=== PATIENT | female | born 1975 | race Caucasian/White ===

== ENCOUNTER → 2016-10-17 | Outpatient (REF) | payer BC ==
[2016-10-17 11:35] LABS: ANION GAP 10 MEQ/L (8-16); BLOOD UREA NITROGEN 15 MG/DL (7-18); CALCIUM LEVEL 8.9 MG/DL (8.5-10.1); CARBON DIOXIDE LEVEL 23 MEQ/L (21-32); CHLORIDE LEVEL 107 MEQ/L (98-107); CHOLESTEROL LEVEL 153 MG/DL (<200); CREATININE FOR GFR 0.86 MG/DL (0.55-1.02); GLOMERULAR FILTRATION RATE > 60.0 (>58); GLUCOSE, FASTING 97 MG/DL (70-105); SODIUM LEVEL 140 MEQ/L (136-145); TRIGLYCERIDES LEVEL 124 MG/DL (<150)
== END ==
LOC: M LABDRAWC 11:02
PROVIDERS: ATTEND Physician Assistant Medical
DX: R73.01 Impaired fasting glucose (principal); E55.9 Vitamin D deficiency, unspecified; E83.51 Hypocalcemia

== ENCOUNTER 2016-11-20 07:52 | Emergency (ER) | payer BC ==
[~2016-11-20] VITALS: Ht 162.6 cm; Wt 78.9 kg
[2016-11-20] MEDS ORDERED: ATOR1TAB21 PO (08:28)
[2016-11-20] MEDS ORDERED: PHEN15CA58 PO (08:28)
[2016-11-20] MEDS ORDERED: ZOLO50TA PO (08:28)
[2016-11-20] MEDS ORDERED: METF500T4 PO (08:28)
[2016-11-20 10:27] LABS: BASO % 0.3 % (0.0-1.0); EOS # 0.2 K/mm3 (0.0-0.50); EOS % 2.4 % (0.0-3.0); LARGE UNSTAINED CELL # 0.1 K/mm3 (0.0-0.4); LARGE UNSTAINED CELL % 1.3 % (0.0-4.0); LYMPH # 2.2 K/mm3 (1.5-4.5); LYMPH % 28.7 % (24.0-44.0); MEAN CORPUSCULAR HEMOGLOBIN 33.2 pg (27.0-33.0); MEAN CORPUSCULAR HGB CONC 34.8 g/dl (32.0-36.5); MEAN CORPUSCULAR VOLUME 95.5 fl (80.0-96.0); MONO # 0.3 K/mm3 (0.0-0.8); MONO % 4.5 % (0.0-5.0); NEUTROPHILS # 4.6 K/mm3 (1.8-7.7); NEUTROPHILS % 62.8 % (36.0-66.0); PLATELET COUNT, AUTOMATED 273 k/mm3 (150-450); RED CELL DISTRIBUTION WIDTH 12.6 % (11.5-14.5); WHITE BLOOD COUNT 7.4 K/mm3 (4.0-10.0)
--- NOTE | 2016-11-20 10:30 | REP ---
Acute abdominal series: Three views. History: Abdominal pain. Comparison study June 09, 2011. Findings: Upright chest radiograph is normal. There is no evidence of infiltrate or free subdiaphragmatic air. Heart is not enlarged. Supine and erect views of the abdomen show air and stool in a nondistended colon. There are a few loops of air-filled but nondilated small bowel in the right mid abdomen. Psoas margins and flank stripes are intact. No mass, organomegaly, or pathologic calcification is seen. There are two adjacent calcific opacities in the left mid pelvis. These are unchanged compared to August 11, 2009 prior radiographs and are therefore not felt to be a distal ureteral. Impression: Nonspecific right central abdominal small bowel loops. Otherwise unremarkable abdominal series. Signed by Vahid Thomason MD 11/20/2016 12:24 P
[2016-11-20 10:46] LABS: ALBUMIN 3.8 GM/DL (3.2-5.2); ALBUMIN/GLOBULIN RATIO 1.19 (1.00-1.93); ALKALINE PHOSPHATASE 86 U/L (45-117); ALT/SGPT 48 U/L (12-78); ANION GAP 7 MEQ/L (8-16); AST/SGOT 31 U/L (15-37); BILIRUBIN,DIRECT < 0.1 MG/DL (0.0-0.2); BILIRUBIN,TOTAL 0.3 MG/DL (0.2-1.0); BLOOD UREA NITROGEN 13 MG/DL (7-18); CALCIUM LEVEL 8.7 MG/DL (8.5-10.1); CARBON DIOXIDE LEVEL 26 MEQ/L (21-32); CHLORIDE LEVEL 109 MEQ/L (98-107); CREATININE FOR GFR 0.85 MG/DL (0.55-1.02); GLOMERULAR FILTRATION RATE > 60.0 (>58); GLUCOSE, FASTING 100 MG/DL (70-105); POTASSIUM SERUM 4.1 MEQ/L (3.5-5.1); SODIUM LEVEL 142 MEQ/L (136-145)
--- NOTE | 2016-11-20 12:19 | REP ---
Pelvic sonography: History: Question right ovarian cyst. Comparison sonography is from July 16, 2013. Findings: Transabdominal scanning is performed. Uterus is surgically absent. The left ovary is removed. Visualized bladder arenas are smooth. Right ovary is normal measuring 3.5 x 2.6 x 3.1 cm in overall dimension. Resistive index is normal by Doppler in the right ovary at 0.53. Impression: Status post hysterectomy and left oophorectomy. Normal right ovary seen. No free fluid. Signed by Vahid Thomason MD 11/20/2016 12:28 P
--- NOTE | 2016-11-20 13:15 | REP ---
CT study of the abdomen pelvis without IV or oral contrast: Renal stone protocol. History: Right lower quadrant pain, question appendicitis. Comparison CT study: December 30, 2013. CT findings: Preliminary digital music journalist radiograph shows an unremarkable bowel gas pattern. The lung bases are clear. There is no evidence of pleural effusion or upper abdominal ascites. The liver and the spleen are normal in size and homogeneous in texture. No adrenal lesion is seen on either side. The gallbladder and the pancreas are unremarkable. There is an intrarenal 3 mm calculus at the lower pole of the right kidney. There is also a 2 mm intrarenal calculus at the upper pole of the left kidney. No hydronephrosis is seen on either side. No hydroureter is seen. No bladder calculus is observed. There are sutures in the left adnexal region in this patient who is status post left oophorectomy. Uterus is surgically absent. A normal right ovary is seen measuring 2.8 cm in greatest diameter. Normal appendix is noted in the right lower abdomen. No abdominal wall defect is observed. No bony destructive lesion is seen. Impression: Bilateral intrarenal nephrolithiasis with a single intrarenal calculus in each kidney. No hydronephrosis seen. Status post hysterectomy and left sided oophorectomy. Normal appendix seen. Signed by Vahid Thomason MD 11/20/2016 07:16 P
[2016-11-20 14:28] VITALS: BP 114/72
== END 2016-11-20 14:38 | disposition home or self-care (01) ==
LOC: M ED 09:06
DX: N20.0 Calculus of kidney (principal); F32.9 Major depressive disorder, single episode, unspecified; I45.10 Unspecified right bundle-branch block; N80.9 Endometriosis, unspecified; F17.200 Nicotine dependence, unspecified, uncomplicated; Z88.2 Allergy status to sulfonamides; Z79.899 Other long term (current) drug therapy

== ENCOUNTER → 2017-03-21 | Outpatient (REF) | payer BC ==
[~2017-03-21] MED LIST: ATOR1TAB21 PO; METF500T4 PO; PHEN15CA PO; ZOLO50TA PO
[2017-03-21 14:09] LABS: ANION GAP 7 MEQ/L (8-16); BLOOD UREA NITROGEN 11 MG/DL (7-18); CALCIUM LEVEL 8.6 MG/DL (8.5-10.1); CARBON DIOXIDE LEVEL 23 MEQ/L (21-32); CHLORIDE LEVEL 108 MEQ/L (98-107); CHOLESTEROL LEVEL 183 MG/DL (<200); CREATININE FOR GFR 0.82 MG/DL (0.55-1.02); GLOMERULAR FILTRATION RATE > 60.0 (>58); GLUCOSE, FASTING 82 MG/DL (70-105); POTASSIUM SERUM 3.8 MEQ/L (3.5-5.1); SODIUM LEVEL 138 MEQ/L (136-145); TRIGLYCERIDES LEVEL 124 MG/DL (<150)
== END ==
LOC: M SFHCPLAZ 12:27
PROVIDERS: ATTEND Physician Assistant Medical
DX: R73.01 Impaired fasting glucose (principal); E83.51 Hypocalcemia; E55.9 Vitamin D deficiency, unspecified

== ENCOUNTER → 2017-03-22 | Outpatient (CLI) | payer BC ==
--- NOTE | 2017-03-22 11:02 | REP ---
CT ABDOMEN AND PELVIS WITHOUT CONTRAST: CT abdomen and pelvis performed without oral or IV contrast. Sagittal and coronal reconstruction images is performed. Comparison made with a prior study of 11/20/2016. The visualized lung bases are clear. The liver, spleen, adrenals and pancreas are grossly unremarkable. Tiny intrarenal calculus is seen in the lower pole of the right kidney and in the upper pole of the left kidney. No ureteral calculi are seen and there is no evidence of hydroureteronephrosis. There is no abdominal aortic aneurysm. There is no adenopathy. There is no free air or free fluid. There is no bowel wall thickening. There is no evidence of appendicitis. The patient has had a prior hysterectomy and left oophorectomy. The urinary bladder is minimally distended and grossly unremarkable. IMPRESSION: Tiny intrarenal calculus bilaterally. No ureteral calculus and no hydroureteronephrosis. No evidence of appendicitis. Signed by Mat Cam MD 03/22/2017 03:56 P
[2017-03-22 11:20] LABS: ALBUMIN 3.6 GM/DL (3.2-5.2); ALBUMIN/GLOBULIN RATIO 1.44 (1.00-1.93); ALKALINE PHOSPHATASE 88 U/L (45-117); ALT/SGPT 48 U/L (12-78); AMYLASE 57 U/L (25-115); ANION GAP 8 MEQ/L (8-16); AST/SGOT 22 U/L (15-37); BILIRUBIN,TOTAL 0.5 MG/DL (0.2-1.0); BLOOD UREA NITROGEN 11 MG/DL (7-18); CALCIUM LEVEL 8.6 MG/DL (8.5-10.1); CARBON DIOXIDE LEVEL 22 MEQ/L (21-32); CHLORIDE LEVEL 111 MEQ/L (98-107); CREATININE FOR GFR 0.82 MG/DL (0.55-1.02); GLOMERULAR FILTRATION RATE > 60.0 (>58); GLUCOSE, FASTING 102 MG/DL (70-105); POTASSIUM SERUM 4.2 MEQ/L (3.5-5.1); SODIUM LEVEL 141 MEQ/L (136-145); TOTAL PROTEIN 6.1 GM/DL (6.4-8.2)
== END ==
LOC: M LAB 09:17
PROVIDERS: ATTEND Physician Assistant Medical
DX: N20.0 Calculus of kidney (principal)

== ENCOUNTER → 2017-07-24 | Outpatient (CLI) | payer BC ==
--- NOTE | 2017-07-24 09:47 | REPMRS ---
Patient History The patient states she has not had a clinical breast exam in over a year. No known family history of cancer. Benign cyst aspiration of the right breast, 2012. Digital Woman Screen Mammo: July 24, 2017 - Exam #: [id number] Bilateral CC and MLO view(s) were taken. Technologist: Etelvina Egan, Technologist Prior study comparison: July 11, 2016, digital woman screen mammo performed at [facility]. May 18, 2015, bilateral digital mammo screening bilat, performed at [facility]. FINDINGS: The breast tissue is heterogeneously dense. This may lower the sensitivity of mammography. There has been no change in the appearance of the mammogram from the prior studies. There is a moderate amount of residual fibroglandular tissue which is fairly symmetric. There is no interval development of dominant mass, areas of architectural distortion, or clustered microcalcification typical of malignancy. ASSESSMENT: BI-RADS/ACR category 1 mammogram. Negative. Recommendation Routine screening mammogram in 1 year (for women over age 40). This mammogram was interpreted with the aid of an FDA-approved computer-aided dectection system. Electronically Signed By: Mat Cam MD 07/24/17 [id number]
== END ==
LOC: M WHC 06:51
PROVIDERS: ATTEND Family Medicine
DX: Z12.31 Encounter for screening mammogram for malignant neoplasm of breast (principal)

== ENCOUNTER → 2018-01-10 | Outpatient (REF) | payer BC ==
[2018-01-10 11:38] LABS: BASO % 0.3 % (0.0-1.0); EOS # 0.2 10^3/uL (0.0-0.50); EOS % 2.8 % (0.0-3.0); HEMATOCRIT 42.7 % (36.0-47.0); HEMOGLOBIN 14.4 g/dl (12.0-15.5); IMMATURE GRANULOCYTE % 0.3 % (0-3.0); LYMPH # 2.1 10^3/uL (1.5-4.5); MEAN CORPUSCULAR HEMOGLOBIN 31.2 pg (27.0-33.0); MEAN CORPUSCULAR HGB CONC 33.7 g/dl (32.0-36.5); MEAN CORPUSCULAR VOLUME 92.4 fl (80.0-96.0); MONO # 0.4 10^3/uL (0.0-0.8); MONO % 6.6 % (0.0-5.0); NEUTROPHILS # 3.6 10^3/uL (1.8-7.7); PLATELET COUNT, AUTOMATED 280 10^3/uL (150-450); RED BLOOD COUNT 4.62 10^6/uL (4.00-5.40); RED CELL DISTRIBUTION WIDTH 12.6 % (11.5-14.5); WHITE BLOOD COUNT 6.4 10^3/uL (4.0-10.0)
[2018-01-10 12:58] LABS: ALBUMIN 3.6 GM/DL (3.2-5.2); ALKALINE PHOSPHATASE 84 U/L (45-117); ALT/SGPT 81 U/L (12-78); ANION GAP 7 MEQ/L (8-16); AST/SGOT 38 U/L (7-37); BILIRUBIN,TOTAL 0.5 MG/DL (0.2-1.0); BLOOD UREA NITROGEN 8 MG/DL (7-18); CALCIUM LEVEL 8.7 MG/DL (8.5-10.1); CARBON DIOXIDE LEVEL 27 MEQ/L (21-32); CHLORIDE LEVEL 109 MEQ/L (98-107); CREATININE FOR GFR 0.88 MG/DL (0.55-1.30); GAMMA GLUTAMYLTRANSPEPTIDASE 98 U/L (5-55); GLOMERULAR FILTRATION RATE > 60.0 (>58); GLUCOSE, FASTING 121 MG/DL (70-100); POTASSIUM SERUM 4.1 MEQ/L (3.5-5.1); SODIUM LEVEL 143 MEQ/L (136-145); TOTAL PROTEIN 6.6 GM/DL (6.4-8.2)
[2018-01-15 08:11] LABS: O+P EXAM Final report (.)
== END ==
LOC: M SFHCPLAZ 09:42 → M SFHCCLAY 09:46
DX: A09 Infectious gastroenteritis and colitis, unspecified (principal)
CPT/HCPCS: 82977

== ENCOUNTER → 2018-01-25 | Outpatient (REF) | payer BC ==
[2018-01-25 12:02] LABS: TOTAL 25(OH) VITAMIN D 24.9 NG/ML (30.0-100.0)
[2018-01-25 12:03] LABS: PTH INTACT 33.7 PG/ML (18.5-88.0)
[2018-01-25 12:31] LABS: ALBUMIN 3.9 GM/DL (3.2-5.2); ALKALINE PHOSPHATASE 88 U/L (45-117); ALT/SGPT 64 U/L (12-78); ANION GAP 10 MEQ/L (8-16); AST/SGOT 30 U/L (7-37); BILIRUBIN,TOTAL 0.4 MG/DL (0.2-1.0); BLOOD UREA NITROGEN 13 MG/DL (7-18); CALCIUM LEVEL 9.2 MG/DL (8.5-10.1); CARBON DIOXIDE LEVEL 21 MEQ/L (21-32); CHLORIDE LEVEL 110 MEQ/L (98-107); CHOLESTEROL LEVEL 187 MG/DL (<200); CHOLESTEROL RISK RATIO 4.348 (<5); CREATININE FOR GFR 0.85 MG/DL (0.55-1.30); FREE T4 0.92 NG/DL (0.76-1.46); GLOMERULAR FILTRATION RATE > 60.0 (>58); GLUCOSE, FASTING 108 MG/DL (70-100); HDL CHOLESTEROL 43 MG/DL (>40); LDL CHOLESTEROL 117.8 MG/DL (<100); NON-HDL-C 144 MG/DL; POTASSIUM SERUM 4.1 MEQ/L (3.5-5.1); SODIUM LEVEL 141 MEQ/L (136-145); TOTAL PROTEIN 6.9 GM/DL (6.4-8.2); TRIGLYCERIDES LEVEL 131 MG/DL (<150)
== END ==
LOC: M SFHCPLAZ 09:10
DX: E55.9 Vitamin D deficiency, unspecified (principal); E66.9 Obesity, unspecified; E78.2 Mixed hyperlipidemia
CPT/HCPCS: 84443

== ENCOUNTER → 2018-02-05 | Outpatient (REF) | payer BC | LOC: M SFHCPLAZ 14:34 | DX: A04.72 Enterocolitis due to Clostridium difficile, not specified as recurrent (principal) ==

== ENCOUNTER → 2018-02-06 | Outpatient (REF) | payer BC | LOC: M SFHCPLAZ 11:14 | DX: A04.72 Enterocolitis due to Clostridium difficile, not specified as recurrent (principal) | CPT/HCPCS: 87507 ==

== ENCOUNTER → 2018-06-14 | Outpatient (REF) | payer BC | LOC: M SFHCCLAY 09:45 | DX: N39.0 Urinary tract infection, site not specified (principal) | CPT/HCPCS: 87086 ==

== ENCOUNTER → 2018-07-30 | Outpatient (CLI) | payer BC | LOC: M WHC 16:14 | DX: Z12.31 Encounter for screening mammogram for malignant neoplasm of breast (principal); Z92.89 Personal history of other medical treatment | CPT/HCPCS: 77067 ==

== ENCOUNTER → 2018-07-31 | Outpatient (REF) | payer BC ==
[2018-07-31 17:03] LABS: ESTIMATED AVERAGE GLUCOSE 126 MG/DL (60-110)
== END ==
LOC: M LABDRAWC 16:03
DX: R73.01 Impaired fasting glucose (principal)
CPT/HCPCS: 83036

== ENCOUNTER → 2018-09-30 | Outpatient (REF) | payer BC ==
[2018-09-30 17:15] LABS: CREATININE, URINE 65.7 MG/DL; MALB URINE SIEMENS < 5.0 MG/L; MAU/CREAT RATIO 7.6 MCG/MG (0.0-30.0)
[2018-09-30 17:32] LABS: ALBUMIN 3.7 GM/DL (3.2-5.2); ALT/SGPT 36 U/L (12-78); BILIRUBIN,TOTAL 0.3 MG/DL (0.2-1.0); BLOOD UREA NITROGEN 8 MG/DL (7-18); CALCIUM LEVEL 8.5 MG/DL (8.5-10.1); CARBON DIOXIDE LEVEL 21 MEQ/L (21-32); CHLORIDE LEVEL 103 MEQ/L (98-107); CREATININE FOR GFR 0.85 MG/DL (0.55-1.30); FREE T4 0.71 NG/DL (0.76-1.46); GLOMERULAR FILTRATION RATE > 60.0 (>58); GLUCOSE, FASTING 159 MG/DL (70-100); POTASSIUM SERUM 4.1 MEQ/L (3.5-5.1); SODIUM LEVEL 136 MEQ/L (136-145); TOTAL PROTEIN 6.9 GM/DL (6.4-8.2)
== END ==
LOC: M LABDRAWC 16:25 → M SFHCCLAY 16:25
PROVIDERS: ATTEND Physician Assistant Medical
DX: R73.01 Impaired fasting glucose (principal); F32.9 Major depressive disorder, single episode, unspecified

== ENCOUNTER → 2019-05-07 | Outpatient (REF) | payer BC ==
[~2019-05-07] MED LIST changes: +REGL10TA6 PO; +VITA-122 PO
[2019-05-07 11:41] LABS: BASO % 0.4 % (0.0-1.0); EOS # 0.4 10^3/uL (0.0-0.50); EOS % 4.1 % (0.0-3.0); HEMATOCRIT 43.8 % (36.0-47.0); LYMPH # 2.4 10^3/uL (1.5-4.5); LYMPH % 26.1 % (24.0-44.0); MEAN CORPUSCULAR HEMOGLOBIN 32.6 pg (27.0-33.0); MEAN CORPUSCULAR HGB CONC 34.2 g/dl (32.0-36.5); MEAN CORPUSCULAR VOLUME 95.2 fl (80.0-96.0); MONO # 0.7 10^3/uL (0.0-0.8); MONO % 7.4 % (0.0-5.0); NEUTROPHILS # 5.6 10^3/uL (1.8-7.7); NEUTROPHILS % 61.7 % (36.0-66.0); PLATELET COUNT, AUTOMATED 299 10^3/uL (150-450); WHITE BLOOD COUNT 9.2 10^3/uL (4.0-10.0)
[2019-05-07 12:08] LABS: HEMOGLOBIN A1c 5.8 %
[2019-05-07 12:10] LABS: ALBUMIN 3.6 GM/DL (3.2-5.2); ALT/SGPT 53 U/L (12-78); BILIRUBIN,TOTAL 0.3 MG/DL (0.2-1.0); BLOOD UREA NITROGEN 14 MG/DL (7-18); CALCIUM LEVEL 9.3 MG/DL (8.5-10.1); CARBON DIOXIDE LEVEL 24 MEQ/L (21-32); CHLORIDE LEVEL 106 MEQ/L (98-107); CHOLESTEROL LEVEL 148 MG/DL (<200); CPK CREATINE PHOSPHOKINASE 154 U/L (26-192); GLOMERULAR FILTRATION RATE > 60.0 (>58); GLUCOSE, FASTING 90 MG/DL (70-100); HDL CHOLESTEROL 50 MG/DL (>40); LDL CHOLESTEROL 73 MG/DL (<100); NON-HDL-C 98 MG/DL; POTASSIUM SERUM 4.2 MEQ/L (3.5-5.1); SODIUM LEVEL 138 MEQ/L (136-145); TOTAL PROTEIN 6.5 GM/DL (6.4-8.2); TRIGLYCERIDES LEVEL 126 MG/DL (<150)
== END ==
LOC: M SFHCPLAZ 09:54
PROVIDERS: ATTEND Physician Assistant Medical
DX: E78.2 Mixed hyperlipidemia (principal); R73.01 Impaired fasting glucose; J30.9 Allergic rhinitis, unspecified; A09 Infectious gastroenteritis and colitis, unspecified

== ENCOUNTER → 2019-09-04 | Outpatient (CLI) | payer BC ==
[~2019-09-04] MED LIST changes: +METF-791 PO; -METF500T4 PO
--- NOTE | 2019-09-04 16:48 | REPMRS ---
Patient History The patient states she has not had a clinical breast exam in over a year. No known family history of cancer. Benign cyst aspiration of the right breast, 2012. No Hormone Replacement Therapy 3D TOMOSYNTHESIS WAS PERFORMED. The [facility] lifetime risk for breast cancer is 9.0%. Digital Woman Screen Mammo: September 04, 2019 - Exam #: [id number] Bilateral CC and MLO view(s) were taken. Technologist: Naomi Harris, Technologist Prior study comparison: July 30, 2018, bilateral digital woman screen mammo performed at [facility]. July 24, 2017, digital woman screen mammo performed at [facility]. FINDINGS: The breast tissue is heterogeneously dense. This may lower the sensitivity of mammography. There has been no change in the appearance of the mammogram from the prior studies. There is a moderate amount of residual fibroglandular tissue which is fairly symmetric. There is no interval development of dominant mass, areas of architectural distortion, or clustered microcalcification typical of malignancy. Assessment: BI-RADS/ACR category 1 mammogram. Negative Mammogram. Recommendation Routine screening mammogram in 1 year (for women over age 40). This mammogram was interpreted with the aid of an FDA-approved computer-aided dectection system. Electronically Signed By: Mat Cam MD 09/04/19 [id number]
== END ==
LOC: M WHC 15:49
PROVIDERS: ATTEND Physician Assistant Medical
DX: Z12.31 Encounter for screening mammogram for malignant neoplasm of breast (principal)

== ENCOUNTER → 2019-09-15 | Outpatient (REF) | payer BC ==
[2019-09-15 11:59] LABS: ALT/SGPT 59 U/L (12-78); BILIRUBIN,TOTAL 0.4 MG/DL (0.2-1.0); BLOOD UREA NITROGEN 14 MG/DL (7-18); CALCIUM LEVEL 10.6 MG/DL (8.5-10.1); CARBON DIOXIDE LEVEL 28 MEQ/L (21-32); CHLORIDE LEVEL 103 MEQ/L (98-107); CPK CREATINE PHOSPHOKINASE 192 U/L (26-192); CREATININE FOR GFR 0.96 MG/DL (0.55-1.30); FREE T4 0.78 NG/DL (0.76-1.46); GLOMERULAR FILTRATION RATE > 60.0 (>58); GLUCOSE, FASTING 96 MG/DL (70-100); POTASSIUM SERUM 4.8 MEQ/L (3.5-5.1); SODIUM LEVEL 139 MEQ/L (136-145); TOTAL 25(OH) VITAMIN D 35.7 NG/ML (30.0-100.0); TOTAL PROTEIN 7.5 GM/DL (6.4-8.2)
[2019-09-15 12:14] LABS: HEMOGLOBIN A1c 6.2 %
[2019-09-15 12:45] LABS: PTH INTACT 19.5 PG/ML (18.5-88.0)
== END ==
LOC: M SFHCPLAZ 08:16
PROVIDERS: ATTEND Physician Assistant Medical
DX: E66.9 Obesity, unspecified (principal); R73.01 Impaired fasting glucose; E78.2 Mixed hyperlipidemia; E55.9 Vitamin D deficiency, unspecified

== ENCOUNTER → 2020-01-13 | Outpatient (REF) | payer BC ==
[2020-01-13 12:36] LABS: HEMOGLOBIN A1c 6.2 %
== END ==
LOC: M SFHCLERA 10:49
PROVIDERS: ATTEND Physician Assistant Medical
DX: R73.01 Impaired fasting glucose (principal)

== ENCOUNTER → 2020-08-31 | Outpatient (CLI) | payer BC ==
[~2020-08-31] MED LIST changes: -METF-791 PO; +METF-838 PO
--- NOTE | 2020-08-31 16:23 | REPMRS ---
Patient History The patient states she has not had a clinical breast exam in over a year. No known family history of cancer. Benign cyst aspiration of the right breast, 2012. No Hormone Replacement Therapy 3D TOMOSYNTHESIS WAS PERFORMED. The [facility] lifetime risk for breast cancer is 8.8%. Volpara breast density b. Digital Woman Screen Mammo: August 31, 2020 - Exam #: [id number] Bilateral CC and MLO view(s) were taken. Technologist: Naomi Harris, Technologist Prior study comparison: September 04, 2019, bilateral digital woman screen mammo performed at [facility]. July 30, 2018, bilateral digital woman screen mammo performed at [facility]. FINDINGS: The breast tissue is heterogeneously dense. This may lower the sensitivity of mammography. There has been no change in the appearance of the mammogram from the prior studies. There is a moderate amount of residual fibroglandular tissue which is fairly symmetric. There is no interval development of dominant mass, areas of architectural distortion, or clustered microcalcification typical of malignancy. Assessment: BI-RADS/ACR category 1 mammogram. Negative Mammogram. Recommendation Routine screening mammogram in 1 year (for women over age 40). This mammogram was interpreted with the aid of an FDA-approved computer-aided dectection system. Electronically Signed By: Mat Cam MD 08/31/20 [id number]
== END ==
LOC: M WHC 14:19
PROVIDERS: ATTEND Physician Assistant Medical
DX: Z12.31 Encounter for screening mammogram for malignant neoplasm of breast (principal); Z86.018 Personal history of other benign neoplasm

== ENCOUNTER → 2020-09-13 | Outpatient (REF) | payer BC ==
[2020-09-13 12:14] LABS: ALBUMIN 3.6 GM/DL (3.2-5.2); ALT/SGPT 32 U/L (12-78); BILIRUBIN,TOTAL 0.4 MG/DL (0.2-1.0); BLOOD UREA NITROGEN 10 MG/DL (7-18); CALCIUM LEVEL 9.1 MG/DL (8.5-10.1); CARBON DIOXIDE LEVEL 26 MEQ/L (21-32); CHLORIDE LEVEL 109 MEQ/L (98-107); CHOLESTEROL LEVEL 163 MG/DL (<200); CHOLESTEROL RISK RATIO 3.326 (<5); CPK CREATINE PHOSPHOKINASE 107 U/L (26-192); CREATININE FOR GFR 0.89 MG/DL (0.55-1.30); FREE T4 0.77 NG/DL (0.76-1.46); GLOMERULAR FILTRATION RATE > 60.0 (>58); GLUCOSE, FASTING 87 MG/DL (70-100); HDL CHOLESTEROL 49 MG/DL (>40); LDL CHOLESTEROL 93 MG/DL (<100); NON-HDL-C 114 MG/DL; POTASSIUM SERUM 4.4 MEQ/L (3.5-5.1); SODIUM LEVEL 138 MEQ/L (136-145); TOTAL PROTEIN 6.6 GM/DL (6.4-8.2); TRIGLYCERIDES LEVEL 106 MG/DL (<150)
== END ==
LOC: M SFHCCLAY 09:12
PROVIDERS: ATTEND Physician Assistant Medical
DX: E78.2 Mixed hyperlipidemia (principal); F32.9 Major depressive disorder, single episode, unspecified

== ENCOUNTER 2020-12-07 11:55 | Emergency (ER) | payer BC ==
[~2020-12-07] VITALS: Ht 157.5 cm; Wt 82.9 kg
[2020-12-07] MEDS ORDERED: OZEM2INJ (12:04)
[2020-12-07] MEDS ORDERED: ATOR1TAB21 (12:04)
[2020-12-07 12:38] LABS: BASO % 0.5 % (0.0-1.0); EOS # 0.2 10^3/uL (0.0-0.5); EOS % 2.8 % (0.0-3.0); HEMATOCRIT 45.4 % (36.0-47.0); HEMOGLOBIN 15.3 g/dl (12.0-15.5); LYMPH # 2.5 10^3/uL (1.5-5.0); LYMPH % 29.3 % (24.0-44.0); MEAN CORPUSCULAR HEMOGLOBIN 31.1 pg (27.0-33.0); MEAN CORPUSCULAR HGB CONC 33.7 g/dl (32.0-36.5); MEAN CORPUSCULAR VOLUME 92.3 fl (80.0-96.0); MONO # 0.5 10^3/uL (0.0-0.8); MONO % 6.2 % (2.0-8.0); NEUTROPHILS # 5.2 10^3/uL (1.5-8.5); NEUTROPHILS % 60.7 % (36.0-66.0); PLATELET COUNT, AUTOMATED 300 10^3/uL (150-450); RED BLOOD COUNT 4.92 10^6/uL (4.00-5.40); WHITE BLOOD COUNT 8.6 10^3/uL (4.0-10.0)
[2020-12-07 12:57] LABS: ALT/SGPT 53 U/L (12-78); BILIRUBIN,DIRECT 0.1 MG/DL (0.0-0.2); BILIRUBIN,TOTAL 0.4 MG/DL (0.2-1.0); BLOOD UREA NITROGEN 11 MG/DL (7-18); CALCIUM LEVEL 9.4 MG/DL (8.5-10.1); CARBON DIOXIDE LEVEL 25 MEQ/L (21-32); CHLORIDE LEVEL 108 MEQ/L (98-107); CREATININE FOR GFR 0.81 MG/DL (0.55-1.30); GLOMERULAR FILTRATION RATE > 60.0 (>58); GLUCOSE, FASTING 91 MG/DL (70-100); LIPASE 291 U/L (73-393); POTASSIUM SERUM 3.9 MEQ/L (3.5-5.1); SODIUM LEVEL 139 MEQ/L (136-145)
--- NOTE | 2020-12-07 13:56 | REP ---
INDICATION: llq pain hx of ovarian cysts. COMPARISON: Comparison pelvic sonography March 19, 2019. Comparison CT study February 17, comparison CT study March 19, 2019 as well.. TECHNIQUE: Transabdominal scanning is performed. FINDINGS: Uterus is surgically absent. The left ovary is surgically absent.. The right ovary has dimensions of 2.8 x 2.6 x 2.8 cm. It's Doppler flow is normal with a resistive index of 0.54 there are 2 1 cm simple cyst in the right ovary.. . No free fluid is seen. IMPRESSION: Uterus and left ovary surgically absent. Two 1 cm simple cysts are seen in the right ovary. No free fluid.. <Electronically signed by Van Thomason > 12/07/20 [id number]
--- NOTE | 2020-12-07 14:20 | REP ---
INDICATION: llq pain ? diverticulitis (doesn't tolerate contrast well) COMPARISON: Comparison CT study March 19, 2019.. TECHNIQUE: Helical scanning is acquired in 4 mm axial images were reformatted. Coronal and sagittal MPR images were generated and reviewed. FINDINGS: Digital preliminary food cashier radiograph demonstrates an unremarkable bowel gas pattern. The lung bases are clear on axial CT images. The liver and the spleen are normal in size homogeneous in texture on noncontrast study. No abnormality noted in the gallbladder or the pancreas. Normal adrenal glands are seen. There is no evidence of hydronephrosis on either side. There is however an intrarenal calculus in the upper pole collecting system of the lefta kidney measuring 2-3 mm in diameter. No ureteral stone is seen. No bladder calculus is observed. The uterus is surgically absent. By history, the right ovary is absent. No adnexal mass is seen. Normal appendix is noted in the right lower quadrant. There is no CT evidence of diverticulitis or bowel obstruction. There is mild diastasis of the rectus abdominus muscles but no jericho ventral hernia is seen. No bony destructive lesions seen. IMPRESSION: Post hysterectomy. Intrarenal nephrolithiasis upper pole left kidney. No hydronephrosis. Otherwise negative CT abdomen and pelvis. No acute abnormality. <Electronically signed by Van Thomason > 12/07/20 [id number]
[2020-12-07] MEDS ORDERED: SIME180C PO (15:08)
[2020-12-07] MEDS ORDERED: DICY1CAP8 PO (15:08)
[2020-12-07 15:22] VITALS: BP 134/89
== END 2020-12-07 15:44 | disposition home or self-care (01) ==
LOC: M ED 11:55
DX: R10.814 Left lower quadrant abdominal tenderness (principal); N83.201 Unspecified ovarian cyst, right side; F17.200 Nicotine dependence, unspecified, uncomplicated; Z79.899 Other long term (current) drug therapy; Z88.1 Allergy status to other antibiotic agents; Z88.2 Allergy status to sulfonamides

== ENCOUNTER → 2021-03-09 | Outpatient (REF) | payer BC ==
[~2021-03-09] MED LIST changes: +ATOR1TAB21; +DICY1CAP8 PO; +OZEM2INJ; +SIME180C25 PO
[2021-03-09 16:38] LABS: ALBUMIN 3.6 GM/DL (3.2-5.2); ALT/SGPT 57 U/L (12-78); BILIRUBIN,TOTAL 0.4 MG/DL (0.2-1.0); BLOOD UREA NITROGEN 9 MG/DL (7-18); CALCIUM LEVEL 8.7 MG/DL (8.5-10.1); CARBON DIOXIDE LEVEL 25 MEQ/L (21-32); CHLORIDE LEVEL 109 MEQ/L (98-107); CREATININE FOR GFR 0.89 MG/DL (0.55-1.30); GLOMERULAR FILTRATION RATE > 60.0 (>58); GLUCOSE, FASTING 85 MG/DL (70-100); POTASSIUM SERUM 4.3 MEQ/L (3.5-5.1); SODIUM LEVEL 141 MEQ/L (136-145); TOTAL PROTEIN 6.5 GM/DL (6.4-8.2)
[2021-03-09 16:42] LABS: HEMOGLOBIN A1c 5.6 %
[2021-03-09 16:46] LABS: PTH INTACT 62.9 PG/ML (18.5-88.0); TOTAL 25(OH) VITAMIN D 32.6 NG/ML (30.0-100.0)
== END ==
LOC: M SFHCCLAY 13:46
PROVIDERS: ATTEND Physician Assistant Medical
DX: R73.01 Impaired fasting glucose (principal); E55.9 Vitamin D deficiency, unspecified

== ENCOUNTER → 2021-04-14 | Outpatient (CLI) | payer BC ==
--- NOTE | 2021-04-14 15:38 | REP ---
INDICATION: OTHER COMPLICATED HEADACHE SYNDROME. COMPARISON: None. TECHNIQUE: There are 9 views including flexion and extension and swimmer's view FINDINGS: Vertebral body heights and alignment are normal. There is no listhesis on flexion or extension. There is disc space narrowing and osteophytic formation at multiple levels from C3-C7 compatible with multilevel degenerative disc disease. There is foraminal encroachment from uncinate spurring on the left at C4-5 and C5-6 and mildly at C6-7; and on the right at C5-6. The odontoid views are suboptimal. The facets are normally aligned. The prevertebral soft tissues are unremarkable. IMPRESSION: Multilevel degenerative disc disease with foraminal encroachment from uncinate spurring as described above. No listhesis on flexion or extension. <Electronically signed by Mat Elkins > 04/14/21 [id number]
--- NOTE | 2021-04-14 15:42 | REP ---
INDICATION: OTHER COMPLICATED HEADACHE SYNDROME. COMPARISON: Abdomen/pelvis CT dated 12/07/2020. TECHNIQUE: There are five views. FINDINGS: There is moderate intervertebral degenerative disc disease at every lumbar level. There is no spondylolysis or spondylolisthesis. The pedicles, facet articulations and sacroiliac articulations are unremarkable. There are no calcifications or foreign bodies. IMPRESSION: Moderate intervertebral degenerative disc disease throughout the lumbar spine. <Electronically signed by Mat Elkins > 04/14/21 [id number]
[2021-04-14 17:37] LABS: BASO # 0.1 10^3/uL (0.0-0.2); BASO % 0.5 % (0.0-1.0); EOS # 0.3 10^3/uL (0.0-0.5); HEMATOCRIT 42.1 % (36.0-47.0); HEMOGLOBIN 13.8 g/dl (12.0-15.5); LYMPH % 26.8 % (24.0-44.0); MEAN CORPUSCULAR HEMOGLOBIN 30.9 pg (27.0-33.0); MEAN CORPUSCULAR HGB CONC 32.8 g/dl (32.0-36.5); MEAN CORPUSCULAR VOLUME 94.2 fl (80.0-96.0); MONO # 0.9 10^3/uL (0.0-0.8); MONO % 8.4 % (2.0-8.0); NEUTROPHILS # 6.7 10^3/uL (1.5-8.5); NEUTROPHILS % 60.7 % (36.0-66.0); PLATELET COUNT, AUTOMATED 306 10^3/uL (150-450); RED BLOOD COUNT 4.47 10^6/uL (4.00-5.40)
[2021-04-14 17:46] LABS: AMORPHOUS SEDIMENT SMALL (NEGATIVE); APPEARANCE, URINE CLOUDY (CLEAR); BACTERIA, URINE AUTO NEGATIVE (NEGATIVE); BILIRUBIN, URINE AUTO NEGATIVE (NEGATIVE); BLOOD, URINE BLOOD NEGATIVE (NEGATIVE); COLOR, URINE YELLOW (YELLOW); GLUCOSE, URINE (UA) AUTO NEGATIVE (NEGATIVE); KETONE, URINE AUTO NEGATIVE (NEGATIVE); LEUKOCYTE ESTERASE, URINE AUTO NEGATIVE (NEGATIVE); NITRITE, URINE AUTO NEGATIVE (NEGATIVE); PROTEIN, URINE AUTO NEGATIVE (NEGATIVE); RBC, URINE AUTO 3 /HPF (0-3); SQUAMOUS EPITHELIAL CELL UR AU 11 /HPF (0-6); UROBILINOGEN, URINE AUTO 0.2 mg/dL (0.0-2.0); WBC, URINE AUTO 1 /HPF (0-3)
== END ==
LOC: M PLALAB 14:41
PROVIDERS: ATTEND Physician Assistant Medical
DX: M51.36 Other intervertebral disc degeneration, lumbar region (principal); M50.31 Other cervical disc degeneration, high cervical region; M50.321 Other cervical disc degeneration at C4-C5 level; M50.322 Other cervical disc degeneration at C5-C6 level; M50.323 Other cervical disc degeneration at C6-C7 level; G44.59 Other complicated headache syndrome

== ENCOUNTER → 2021-04-28 | Outpatient (CLI) | payer OTHER, BC ==
[2021-04-28 17:39] LABS: BASO % 0.5 % (0.0-1.0); EOS # 0.3 10^3/uL (0.0-0.5); EOS % 3.3 % (0.0-3.0); HEMATOCRIT 46.6 % (36.0-47.0); HEMOGLOBIN 15.6 g/dl (12.0-15.5); LYMPH # 2.6 10^3/uL (1.5-5.0); LYMPH % 30.6 % (24.0-44.0); MEAN CORPUSCULAR HEMOGLOBIN 31.5 pg (27.0-33.0); MEAN CORPUSCULAR HGB CONC 33.5 g/dl (32.0-36.5); MONO # 0.7 10^3/uL (0.0-0.8); MONO % 8.3 % (2.0-8.0); NEUTROPHILS # 4.9 10^3/uL (1.5-8.5); PLATELET COUNT, AUTOMATED 331 10^3/uL (150-450); RED BLOOD COUNT 4.96 10^6/uL (4.00-5.40); WHITE BLOOD COUNT 8.6 10^3/uL (4.0-10.0)
== END ==
LOC: M PLALAB 14:22
PROVIDERS: ATTEND Physician Assistant Medical
DX: D72.820 Lymphocytosis (symptomatic) (principal)

== ENCOUNTER → 2021-05-20 | Outpatient (CLI) | payer BC ==
--- NOTE | 2021-05-22 15:19 | REPVR ---
PROCEDURE INFORMATION: Exam: MR Lumbar Spine Without Contrast Exam date and time: 05/20/2021 3:01 PM Age: 45 years old Clinical indication: Low back pain; Additional info: Radiculopathy TECHNIQUE: Imaging protocol: Multiplanar magnetic resonance images of the lumbar spine without intravenous contrast. COMPARISON: CR Spine. Lumbosacral, complete 04/14/2021 3:20 PM FINDINGS: Vertebrae: Vertebral body heights are intact. Alignment is maintained. No pars defect is identified. Spinal cord: The conus is unremarkable in appearance, with its tip at the L1 level. Multilevel findings: There are varying degrees of disc desiccation indicating intervertebral disc degeneration. T12-L1: Included on the sagittal sequences only, there appears to be a small bulge. L1-L2: Small bulge combining with facet arthrosis to lead to very mild left neural foraminal narrowing without significant spinal stenosis. There is small fluid in the facet joints. L2-L3: Small bulge without significant neural foraminal narrowing or spinal stenosis. There is small fluid in the facet joints. L3-L4: Small bulge combining with facet arthrosis to lead to very mild right and mild left neural foraminal narrowing without significant spinal stenosis. L4-L5: Small broad-based central protrusion without significant neural foraminal narrowing or spinal stenosis. There is bilateral facet arthrosis. L5-S1: Diffuse bulge with a superiorly directed left paracentral extrusion which extends approximately 6 mm caudad to the level of the disc space. In conjunction with facet arthrosis, there is very mild bilateral neural foraminal narrowing with moderate left lateral recess narrowing, without significant central canal stenosis. Soft tissues: Unremarkable. IMPRESSION: Multilevel disc desiccation indicating intervertebral disk degeneration with disc displacements as described. COMMENTS: If surgery is considered, recommend level confirmation. Electronically signed by: Tim Yanes On 05/22/2021 15:19:17 PM
== END ==
LOC: M PLAIMG 14:24
PROVIDERS: ATTEND Physician Assistant Medical
DX: M54.16 Radiculopathy, lumbar region (principal); M51.26 Other intervertebral disc displacement, lumbar region

== ENCOUNTER 2021-06-08 08:57 | Outpatient (RCR) | payer OTHER, BC | END 2021-06-09 | LOC: M PT 08:57 | PROVIDERS: ATTEND Physician Assistant Medical | DX: M51.16 Intervertebral disc disorders with radiculopathy, lumbar region (principal) ==

== ENCOUNTER 2021-07-08 07:00 | Outpatient (RCR) | payer OTHER, BC | END 2021-07-10 | LOC: M PT 07:00 | PROVIDERS: ATTEND Physician Assistant Medical | DX: M51.16 Intervertebral disc disorders with radiculopathy, lumbar region (principal) ==

== ENCOUNTER → 2021-08-02 | Outpatient (REF) ==
[2021-08-02 09:07] LABS: RSV AMPLIFICATION NEGATIVE (NEGATIVE)
== END ==
LOC: M EMP 07:32
PROVIDERS: ATTEND Family Medicine
DX: Z20.822 Contact with and (suspected) exposure to COVID-19 (principal)

== ENCOUNTER → 2021-09-07 | Outpatient (REF) | LOC: M EMP 08:28 | PROVIDERS: ATTEND Family Medicine | DX: Z11.52 Encounter for screening for COVID-19 (principal); Z20.822 Contact with and (suspected) exposure to COVID-19 ==

== ENCOUNTER → 2021-11-03 | Outpatient (REF) | payer BC, OTHER ==
[~2021-11-03] MED LIST changes: -PHEN15CA PO; +PHEN15CA6 PO
== END ==
LOC: M SFHCPLAZ 09:31
PROVIDERS: ATTEND Physician Assistant Medical
DX: L02.91 Cutaneous abscess, unspecified (principal)

== ENCOUNTER → 2021-11-25 | Outpatient (CLI) | payer BC ==
[2021-11-25 17:25] LABS: BASO % 0.4 % (0.0-1.0); EOS # 0.4 10^3/uL (0.0-0.5); EOS % 3.8 % (0.0-3.0); HEMATOCRIT 46.2 % (36.0-47.0); HEMOGLOBIN 15.5 g/dl (12.0-15.5); LYMPH # 3.1 10^3/uL (1.5-5.0); LYMPH % 32.3 % (24.0-44.0); MEAN CORPUSCULAR HEMOGLOBIN 31.1 pg (27.0-33.0); MEAN CORPUSCULAR HGB CONC 33.5 g/dl (32.0-36.5); MEAN CORPUSCULAR VOLUME 92.6 fl (80.0-96.0); MONO # 0.7 10^3/uL (0.0-0.8); MONO % 7.1 % (2.0-8.0); NEUTROPHILS # 5.3 10^3/uL (1.5-8.5); NEUTROPHILS % 56.1 % (36.0-66.0); PLATELET COUNT, AUTOMATED 314 10^3/uL (150-450); RED BLOOD COUNT 4.99 10^6/uL (4.00-5.40); WHITE BLOOD COUNT 9.5 10^3/uL (4.0-10.0)
[2021-11-25 17:44] LABS: HEMOGLOBIN A1c 5.8 %
[2021-11-25 17:47] LABS: ALBUMIN 4.3 GM/DL (3.2-5.2); ALT/SGPT 71 U/L (12-78); BILIRUBIN,TOTAL 0.4 MG/DL (0.2-1.0); BLOOD UREA NITROGEN 24 MG/DL (7-18); CALCIUM LEVEL 9.9 MG/DL (8.5-10.1); CARBON DIOXIDE LEVEL 27 MEQ/L (21-32); CHLORIDE LEVEL 109 MEQ/L (98-107); CHOLESTEROL LEVEL 160 MG/DL (<200); CHOLESTEROL RISK RATIO 3.809 (<5); CREATININE FOR GFR 0.83 MG/DL (0.55-1.30); FREE T4 0.86 NG/DL (0.76-1.46); GLOMERULAR FILTRATION RATE > 60.0 (>58); GLUCOSE, FASTING 102 MG/DL (70-100); HDL CHOLESTEROL 42 MG/DL (>40); LDL CHOLESTEROL 85 MG/DL (<100); NON-HDL-C 118 MG/DL; POTASSIUM SERUM 4.4 MEQ/L (3.5-5.1); SODIUM LEVEL 139 MEQ/L (136-145); THYROID STIMULATING HORMONE 0.987 uIU/ML (0.358-3.740); TOTAL PROTEIN 7.1 GM/DL (6.4-8.2); TRIGLYCERIDES LEVEL 164 MG/DL (<150)
== END ==
LOC: M PLALAB 14:27
PROVIDERS: ATTEND Physician Assistant Medical
DX: R73.01 Impaired fasting glucose (principal)

== ENCOUNTER → 2021-12-05 | Outpatient (REF) | payer BC, OTHER ==
[2021-12-05 16:01] LABS: INR 0.93; PROTHROMBIN TIME 12.9 SECONDS (12.7-14.5)
[2021-12-05 16:02] LABS: PARTIAL THROMBOPLASTIN TIME 31.5 SECONDS (25.9-37.0)
[2021-12-05 17:06] LABS: HEPATITIS B CORE ANTIBODY IGM NEGATIVE (NEGATIVE); HEPATITIS C VIRUS ABY INDEX 0.2 INDEX (<0.8)
== END ==
LOC: M SFHCPLAZ 13:45
PROVIDERS: ATTEND Physician Assistant Medical
DX: R79.89 Other specified abnormal findings of blood chemistry (principal)

== ENCOUNTER → 2021-12-09 | Outpatient (CLI) | payer BC | LOC: M WHC 06:48 | PROVIDERS: ATTEND Physician Assistant Medical | DX: R79.89 Other specified abnormal findings of blood chemistry (principal) ==

== ENCOUNTER → 2021-12-28 | Outpatient (CLI) | payer BC | LOC: M WHC 07:08 | PROVIDERS: ATTEND Family Medicine | DX: Z12.31 Encounter for screening mammogram for malignant neoplasm of breast (principal) ==

== ENCOUNTER → 2022-05-10 | Outpatient (REF) | payer BC | LOC: M SFHCPLAZ 13:21 | PROVIDERS: ATTEND Physician Assistant Medical | DX: D48.5 Neoplasm of uncertain behavior of skin (principal) ==

== ENCOUNTER → 2022-06-04 | Outpatient (REF) | LOC: M LABSMTC 11:28 | PROVIDERS: ATTEND Family Medicine | DX: Z20.822 Contact with and (suspected) exposure to COVID-19 (principal) ==

== ENCOUNTER → 2022-08-08 | Outpatient (REF) | payer BC ==
[2022-08-08 12:58] LABS: HEMATOCRIT 45.4 % (36.0-47.0); RED BLOOD COUNT 4.79 10^6/uL (4.00-5.40); WHITE BLOOD COUNT 8.9 10^3/uL (4.0-10.0)
[2022-08-08 12:59] LABS: BASO % 0.4 % (0.0-1.0); EOS # 0.3 10^3/uL (0.0-0.5); EOS % 3.4 % (0.0-3.0); LYMPH # 2.4 10^3/uL (1.5-5.0); LYMPH % 26.5 % (24.0-44.0); MEAN CORPUSCULAR HEMOGLOBIN 31.3 pg (27.0-33.0); MEAN CORPUSCULAR VOLUME 94.8 fl (80.0-96.0); MONO # 0.7 10^3/uL (0.0-0.8); MONO % 7.8 % (2.0-8.0); NEUTROPHILS # 5.5 10^3/uL (1.5-8.5); NEUTROPHILS % 61.3 % (36.0-66.0); PLATELET COUNT, AUTOMATED 325 10^3/uL (150-450)
[2022-08-08 13:54] LABS: CHLORIDE LEVEL 103 MMOL/L (98-107); POTASSIUM SERUM 4.6 MMOL/L (3.5-5.1); SODIUM LEVEL 138 MMOL/L (136-145)
[2022-08-08 13:55] LABS: ALBUMIN 3.9 G/DL (3.2-5.2)
[2022-08-08 13:59] LABS: CALCIUM LEVEL 9.3 MG/DL (8.5-10.1); GLUCOSE, FASTING 110 MG/DL (60-100)
[2022-08-08 14:00] LABS: ALKALINE PHOSPHATASE 88 U/L (46-116); BLOOD UREA NITROGEN 15 MG/DL (9-23); PTH INTACT 35.5 PG/ML (18.5-88.0)
[2022-08-08 14:02] LABS: ALT/SGPT 59 U/L (7.0-40); AST/SGOT 34 U/L (<34); BILIRUBIN,TOTAL 0.4 MG/DL (0.3-1.2); CREATININE FOR GFR 0.79 MG/DL (0.55-1.30); GLOMERULAR FILTRATION RATE > 60.0 (>58); TOTAL PROTEIN 6.4 G/DL (5.7-8.2)
[2022-08-08 14:04] LABS: TOTAL 25(OH) VITAMIN D 30.4 NG/ML (20.0-100.0)
[2022-08-08 14:14] LABS: CARBON DIOXIDE LEVEL 25 MMOL/L (20-31)
== END ==
LOC: M SFHCPLAZ 09:32
PROVIDERS: ATTEND Physician Assistant Medical
DX: E55.9 Vitamin D deficiency, unspecified (principal); D72.820 Lymphocytosis (symptomatic)

== ENCOUNTER → 2022-08-23 | Outpatient (CLI) | payer BC | LOC: M RAD 15:39 | PROVIDERS: ATTEND Physician Assistant Medical | DX: R14.0 Abdominal distension (gaseous) (principal) ==

== ENCOUNTER → 2023-01-25 | Outpatient (CLI) | payer BC | LOC: M WHC 16:53 | PROVIDERS: ATTEND Physician Assistant Medical | DX: Z12.31 Encounter for screening mammogram for malignant neoplasm of breast (principal) ==

== ENCOUNTER → 2023-03-23 | Outpatient (REF) | payer BC | LOC: M SFHCCLAY 15:16 | PROVIDERS: ATTEND Physician Assistant | DX: N39.0 Urinary tract infection, site not specified (principal) ==

== ENCOUNTER → 2023-05-18 | Outpatient (REF) | payer BC ==
[2023-05-18 08:58] LABS: APPEARANCE, URINE HAZY (CLEAR); BACTERIA, URINE AUTO NEGATIVE (NEGATIVE); BILIRUBIN, URINE AUTO NEGATIVE (NEGATIVE); BLOOD, URINE BLOOD 1+ (NEGATIVE); COLOR, URINE AMBER (YELLOW); GLUCOSE, URINE (UA) AUTO NEGATIVE (NEGATIVE); KETONE, URINE AUTO NEGATIVE (NEGATIVE); LEUKOCYTE ESTERASE, URINE AUTO 2+ (NEGATIVE); MUCUS, URINE SMALL (NEGATIVE); NITRITE, URINE AUTO NEGATIVE (NEGATIVE); PROTEIN, URINE AUTO NEGATIVE (NEGATIVE); RBC, URINE AUTO 2 /HPF (0-3); SPECIFIC GRAVITY URINE AUTO 1.015 (1.002-1.035); SQUAMOUS EPITHELIAL CELL UR AU 1 /HPF (0-6); UROBILINOGEN, URINE AUTO 0.2 mg/dL (0.0-2.0); WBC, URINE AUTO 2 /HPF (0-3)
[2023-05-18 10:27] LABS: GC DNA AMPLIFICATION NEGATIVE (NEGATIVE)
== END ==
LOC: M SFHCPLAZ 08:38
PROVIDERS: ATTEND Physician Assistant Medical
DX: R30.0 Dysuria (principal); A64 Unspecified sexually transmitted disease

== ENCOUNTER → 2023-07-12 | Outpatient (REF) | payer BC ==
[2023-07-12 12:22] LABS: BASO % 0.2 % (0.0-1.0); EOS # 0.3 10^3/uL (0.0-0.5); EOS % 3.3 % (0.0-3.0); HEMATOCRIT 45.7 % (36.0-47.0); HEMOGLOBIN 15.7 g/dl (12.0-15.5); LYMPH # 2.5 10^3/uL (1.5-5.0); LYMPH % 25.8 % (24.0-44.0); MEAN CORPUSCULAR HGB CONC 34.4 g/dl (32.0-36.5); MEAN CORPUSCULAR VOLUME 93.3 fl (80.0-96.0); MONO # 0.7 10^3/uL (0.0-0.8); MONO % 7.4 % (2.0-8.0); NEUTROPHILS % 62.6 % (36.0-66.0); PLATELET COUNT, AUTOMATED 311 10^3/uL (150-450); WHITE BLOOD COUNT 9.6 10^3/uL (4.0-10.0)
[2023-07-12 13:03] LABS: ALBUMIN 3.7 G/DL (3.2-5.2); ALKALINE PHOSPHATASE 92 U/L (46-116); ALT/SGPT 37 U/L (7.0-40); AST/SGOT 18 U/L (<34); BILIRUBIN,TOTAL 0.3 MG/DL (0.3-1.2); BLOOD UREA NITROGEN 13 MG/DL (9-23); CALCIUM LEVEL 9.4 MG/DL (8.5-10.1); CARBON DIOXIDE LEVEL 25 MMOL/L (20-31); CHLORIDE LEVEL 104 MMOL/L (98-107); CHOLESTEROL LEVEL 227 MG/DL (<200); CREATININE FOR GFR 0.77 MG/DL (0.55-1.30); FREE T4 0.74 NG/DL (0.89-1.76); GLOMERULAR FILTRATION RATE > 60.0 (>58); GLUCOSE, FASTING 104 MG/DL (60-100); POTASSIUM SERUM 4.6 MMOL/L (3.5-5.1); PTH INTACT 30.8 PG/ML (18.5-88.0); SODIUM LEVEL 136 MMOL/L (136-145); THYROID STIMULATING HORMONE 1.519 uIU/ML (0.55-4.78); TOTAL 25(OH) VITAMIN D 25.7 NG/ML (20.0-100.0); TOTAL PROTEIN 6.4 G/DL (5.7-8.2); TRIGLYCERIDES LEVEL 103 MG/DL (<150)
[2023-07-12 13:14] LABS: HEMOGLOBIN A1c 5.8 % (4.0-6.0)
[2023-07-12 13:55] LABS: CHOLESTEROL RISK RATIO 4.74 (<5); HDL CHOLESTEROL 47.8 MG/DL (>40); LDL CHOLESTEROL 158.6 MG/DL (<100); NON-HDL-C 179.2 MG/DL
== END ==
LOC: M LABDRAWC 11:20
PROVIDERS: ATTEND Physician Assistant Medical
DX: E66.9 Obesity, unspecified (principal); R73.01 Impaired fasting glucose; D72.820 Lymphocytosis (symptomatic); Z13.220 Encounter for screening for lipoid disorders; E55.9 Vitamin D deficiency, unspecified

== ENCOUNTER → 2023-08-14 | Outpatient (CLI) | payer BC ==
[~2023-08-14] MED LIST changes: +E-Z-GAS II EFFERVESCENT PACKET (SODIUM BICARB./CITRIC ACID/SIMETHICONE) As Ordered ONE; +E-Z-HD 98% w/w 340GM SUSP BTL As Ordered ONE; +E-Z-PAQUE 96% w/w SUSP 176GM BTL As Ordered ONE
== END ==
LOC: M RAD 08:28
PROVIDERS: ATTEND Physician Assistant Medical
DX: R14.0 Abdominal distension (gaseous) (principal); R93.3 Abnormal findings on diagnostic imaging of other parts of digestive tract

== ENCOUNTER → 2023-10-17 | Day surgery (SDC) | payer BC ==
[~2023-10-17] VITALS: Ht 157.5 cm; Wt 81.6 kg
[~2023-10-17] MED LIST changes: -ATOR1TAB21; -E-Z-GAS II EFFERVESCENT PACKET (SODIUM BICARB./CITRIC ACID/SIMETHICONE) As Ordered ONE; -E-Z-HD 98% w/w 340GM SUSP BTL As Ordered ONE; -E-Z-PAQUE 96% w/w SUSP 176GM BTL As Ordered ONE; +NS 1,000 ML IV ONE; +propofoL 200 MG/20 ML VIAL As Ordered ONE
[2023-10-17 11:47] VITALS: TEMP 97.2
[2023-10-17 12:07] VITALS: BP 117/65; O2SAT 99
== END | disposition home or self-care (01) ==
LOC: M OPP 10:01
PROVIDERS: ATTEND Surgery
DX: Z12.11 Encounter for screening for malignant neoplasm of colon (principal); K63.5 Polyp of colon; F17.200 Nicotine dependence, unspecified, uncomplicated; Z79.899 Other long term (current) drug therapy; Z88.2 Allergy status to sulfonamides

== ENCOUNTER → 2023-10-23 | Outpatient (REF) | payer BC ==
[~2023-10-23] MED LIST changes: -NS 1,000 ML IV ONE; -propofoL 200 MG/20 ML VIAL As Ordered ONE
[2023-10-23 18:52] LABS: RSV AMPLIFICATION NEGATIVE (NEGATIVE)
== END ==
LOC: M SFHCCLAY 15:44
PROVIDERS: ATTEND Physician Assistant
DX: R52 Pain, unspecified (principal)

== ENCOUNTER → 2024-01-02 | Outpatient (CLI) | payer BC | LOC: M RAD 07:40 | PROVIDERS: ATTEND Physician Assistant Medical | DX: R14.0 Abdominal distension (gaseous) (principal) | CPT/HCPCS: 78264; A9541 ==

== ENCOUNTER → 2024-04-10 | Outpatient (REF) | LOC: M EMP 09:28 | PROVIDERS: ATTEND Family Medicine | DX: Z11.52 Encounter for screening for COVID-19 (principal) ==

== ENCOUNTER → 2024-05-27 | Outpatient (REF) | LOC: M EMP 08:38 | PROVIDERS: ATTEND Family Medicine | DX: Z11.52 Encounter for screening for COVID-19 (principal) ==

== ENCOUNTER → 2024-06-30 | Outpatient (CLI) | payer BC ==
[~2024-06-30] MED LIST changes: -SIME180C25 PO; +SIME1CAP4 PO
[2024-06-30 10:41] LABS: BASO % 0.4 % (0.0-1.0); EOS # 0.3 10^3/uL (0.0-0.5); HEMATOCRIT 45.1 % (36.0-47.0); HEMOGLOBIN 15.1 g/dl (12.0-15.5); LYMPH # 2.5 10^3/uL (1.5-5.0); LYMPH % 29.2 % (24.0-44.0); MEAN CORPUSCULAR HEMOGLOBIN 31.9 pg (27.0-33.0); MEAN CORPUSCULAR HGB CONC 33.5 g/dl (32.0-36.5); MEAN CORPUSCULAR VOLUME 95.1 fl (80.0-96.0); MONO # 0.8 10^3/uL (0.0-0.8); MONO % 9.7 % (2.0-8.0); NEUTROPHILS # 4.7 10^3/uL (1.5-8.5); NEUTROPHILS % 56.2 % (36.0-66.0); PLATELET COUNT, AUTOMATED 300 10^3/uL (150-450); RED BLOOD COUNT 4.74 10^6/uL (4.00-5.40); WHITE BLOOD COUNT 8.4 10^3/uL (4.0-10.0)
[2024-06-30 11:08] LABS: HEMOGLOBIN A1c 5.8 % (4.0-6.0)
[2024-06-30 11:17] LABS: ALBUMIN 3.5 G/DL (3.2-5.2); ALKALINE PHOSPHATASE 109 U/L (46-116); ALT/SGPT 49 U/L (7.0-40); AST/SGOT 20 U/L (<34); BILIRUBIN,TOTAL 0.3 MG/DL (0.3-1.2); BLOOD UREA NITROGEN 13 MG/DL (9-23); CALCIUM LEVEL 10.2 MG/DL (8.5-10.1); CARBON DIOXIDE LEVEL 25 MMOL/L (20-31); CHLORIDE LEVEL 110 MMOL/L (98-107); CHOLESTEROL LEVEL 233 MG/DL (<200); CHOLESTEROL RISK RATIO 5.65 (<5); CREATININE FOR GFR 0.79 MG/DL (0.55-1.30); GLOMERULAR FILTRATION RATE > 60.0 (>51); GLUCOSE, FASTING 105 MG/DL (60-100); HDL CHOLESTEROL 41.2 MG/DL (>40); LDL CHOLESTEROL 168.4 MG/DL (<100); NON-HDL-C 191.8 MG/DL; POTASSIUM SERUM 4.8 MMOL/L (3.5-5.1); SODIUM LEVEL 140 MMOL/L (136-145); TOTAL PROTEIN 6.5 G/DL (5.7-8.2); TRIGLYCERIDES LEVEL 117 MG/DL (<150)
== END ==
LOC: M PLALAB 08:40
PROVIDERS: ATTEND Physician Assistant Medical
DX: R73.01 Impaired fasting glucose (principal); D72.820 Lymphocytosis (symptomatic); Z13.220 Encounter for screening for lipoid disorders

== ENCOUNTER → 2024-08-04 | Outpatient (CLI) | payer BC | LOC: M WHC 16:33 | PROVIDERS: ATTEND Physician Assistant Medical | DX: Z12.31 Encounter for screening mammogram for malignant neoplasm of breast (principal) ==

== ENCOUNTER 2024-09-04 10:02 | Emergency (ER) | payer BC ==
[~2024-09-04] VITALS: Ht 157.5 cm; Wt 84.7 kg
[2024-09-04] MEDS ORDERED: METF-838 (11:21)
[2024-09-04] MEDS ORDERED: NORT10CA2 (11:21)
[2024-09-04] MEDS ORDERED: HYDR-4429 (11:21)
[2024-09-04] MEDS ORDERED: CYCL5TAB4 (11:21)
[2024-09-04] MEDS ORDERED: PRED20TA (11:21)
[2024-09-04] MEDS ORDERED: SPIR100T3 (11:21)
[2024-09-04] MEDS: METHOCARBAMOL 1,000 MG/10 ML VIAL IV ONE (12:56)
[2024-09-04] MEDS: methylPREDNISolone 125MG 2ML VIAL IV ONE (12:56)
[2024-09-04] MEDS ORDERED: ISOVUE-370 76% 100ML VIAL As Ordered ONE (12:58)
[2024-09-04 13:00] LABS: BASO % 0.2 % (0.0-1.0); EOS # 0.1 10^3/uL (0.0-0.5); EOS % 0.4 % (0.0-3.0); HEMATOCRIT 43.4 % (36.0-47.0); HEMOGLOBIN 14.6 g/dl (12.0-15.5); LYMPH # 2.8 10^3/uL (1.5-5.0); LYMPH % 14.1 % (24.0-44.0); MEAN CORPUSCULAR HGB CONC 33.6 g/dl (32.0-36.5); MEAN CORPUSCULAR VOLUME 95.2 fl (80.0-96.0); MONO # 1.4 10^3/uL (0.0-0.8); MONO % 7.1 % (2.0-8.0); NEUTROPHILS # 15.1 10^3/uL (1.5-8.5); NEUTROPHILS % 76.9 % (36.0-66.0); PLATELET COUNT, AUTOMATED 291 10^3/uL (150-450); RED BLOOD COUNT 4.56 10^6/uL (4.00-5.40); WHITE BLOOD COUNT 19.6 10^3/uL (4.0-10.0)
[2024-09-04 13:09] LABS: ERYTHROCYTE SEDIMENTATION RATE 8 mm/hr (0-30)
[2024-09-04 13:29] LABS: C REACTIVE PROTEIN QUANTITATIV < 0.50 MG/DL (<1.0)
[2024-09-04 13:30] LABS: ALBUMIN 3.6 G/DL (3.2-5.2); ALKALINE PHOSPHATASE 68 U/L (35-104); ALT/SGPT 57 U/L (7.0-40); AST/SGOT 23 U/L (<34); BILIRUBIN,DIRECT 0.1 MG/DL (<0.4); BILIRUBIN,TOTAL 0.5 MG/DL (0.3-1.2); TOTAL PROTEIN 6.2 G/DL (5.7-8.2)
[2024-09-04] MEDS: ACETAMINOPHEN *IV* 1,000 MG in IV 1 EA IV ONE (13:48)
[2024-09-04] MEDS ORDERED: MEDR4TAB PO (14:32)
[2024-09-04] MEDS ORDERED: METH-1165 PO (14:32)
[2024-09-04] MEDS ORDERED: NAPR-885 PO (14:33)
[2024-09-04] MEDS: KETOROLAC 30 MG/ML 1ML VIAL IV ONE (14:37)
[2024-09-04] MEDS ORDERED: AMOX875T2 PO (14:43)
[2024-09-04] MEDS ORDERED: FLUC150T9 PO (14:49)
[2024-09-04 14:57] VITALS: BP 142/89; TEMP 96.2; O2SAT 100
== END 2024-09-04 15:00 | disposition home or self-care (01) ==
LOC: M ED 10:02
DX: M26.601 Right temporomandibular joint disorder, unspecified (principal); K58.9 Irritable bowel syndrome, unspecified; F32.A Depression, unspecified; E78.5 Hyperlipidemia, unspecified; F17.200 Nicotine dependence, unspecified, uncomplicated; Z79.899 Other long term (current) drug therapy; Z88.2 Allergy status to sulfonamides
CPT/HCPCS: 70450; 70487; 80047; 80076; 83735; 85025; 85652; 86140; 96365; 96375; 99284; J0131; J1885; J2800; J2919; Q9967

== ENCOUNTER 2024-09-24 05:43 | Inpatient (IN) | payer BC ==
[2024-09-24] VITALS (8 sets, daily range): BP systolic 127–166; BP diastolic 73–83; TEMP 95.1–97.6; O2SAT 91–96
[~2024-09-24] VITALS: Ht 157.5 cm; Wt 82.3 kg
[~2024-09-24 05:43] MED LIST changes: +AMOX875T2 PO; +CYCL5TAB4; +FLUC150T9 PO; +HYDR-4429 PO; +MEDR4TAB PO; +METH-1165 PO; +NAPR-885 PO; +NORT10CA2 PO; +PRED20TA PO; +SPIR100T3 PO
[2024-09-24] MEDS ORDERED: ISOVUE-370 76% 100ML VIAL As Ordered ONE (07:35)
[2024-09-24] MEDS: MORPHINE 2 MG/ML 1ML VIAL IV ONE (08:03)
[2024-09-24 08:10] LABS: BASO % 0.2 % (0.0-1.0); EOS # 0.1 10^3/uL (0.0-0.5); EOS % 0.4 % (0.0-3.0); HEMATOCRIT 46.4 % (36.0-47.0); HEMOGLOBIN 15.7 g/dl (12.0-15.5); LYMPH # 2.3 10^3/uL (1.5-5.0); LYMPH % 13.8 % (24.0-44.0); MEAN CORPUSCULAR HEMOGLOBIN 31.7 pg (27.0-33.0); MEAN CORPUSCULAR HGB CONC 33.8 g/dl (32.0-36.5); MEAN CORPUSCULAR VOLUME 93.7 fl (80.0-96.0); MONO # 0.8 10^3/uL (0.0-0.8); MONO % 4.7 % (2.0-8.0); NEUTROPHILS # 13.4 10^3/uL (1.5-8.5); NEUTROPHILS % 79.6 % (36.0-66.0); PLATELET COUNT, AUTOMATED 345 10^3/uL (150-450); RED BLOOD COUNT 4.95 10^6/uL (4.00-5.40); WHITE BLOOD COUNT 16.8 10^3/uL (4.0-10.0)
[2024-09-24 08:15] LABS: ERYTHROCYTE SEDIMENTATION RATE 72 mm/hr (0-30)
[2024-09-24 09:01] LABS: C REACTIVE PROTEIN QUANTITATIV 17.68 MG/DL (<1.0)
[2024-09-24] MEDS: KETOROLAC 30 MG/ML 1ML VIAL IV ONE (10:13)
[2024-09-24] MEDS: AMPICILLIN SOD/SULBACTAM SOD 3 GM in SODIUM CHLORIDE 0.9% 100ML ADD 100 ML IV ONE (11:37)
[2024-09-24] MEDS: MORPHINE 4 MG/ML 1ML VIAL IV ONE (11:37)
[2024-09-24] MEDS: dexAMETHasone 20MG/5ML VIAL IV ONE (11:37)
[2024-09-24] MEDS: ONDANSETRON 4MG 2ML VIAL IV ONE (11:37)
[2024-09-24] MEDS ORDERED: DICY1CAP8 PO (11:39)
[2024-09-24] MEDS ORDERED: FLUC150T9 PO (11:39)
[2024-09-24] MEDS ORDERED: AMOX875T2 PO (11:39)
[2024-09-24] MEDS ORDERED: NAPR-885 PO (11:39)
[2024-09-24] MEDS ORDERED: TRET0.0540 TOP (11:39)
[2024-09-24] MEDS ORDERED: METH-1164 PO (11:39)
[2024-09-24] MEDS ORDERED: HOME MED LIST COMPLETE! XX SCH (11:40)
[2024-09-24] MEDS ORDERED: DICYCLOMINE 10 MG CAP PO PRN (12:00)
[2024-09-24] MEDS ORDERED: methocarbamoL 500 MG TAB PO PRN (12:00)
[2024-09-24 12:29] LABS: INR 1.08; PARTIAL THROMBOPLASTIN TIME 25.8 SECONDS (24.8-34.2); PROTHROMBIN TIME 14.3 SECONDS (12.5-14.5)
[2024-09-24] MEDS ORDERED: PAME25CA PO (12:39)
[2024-09-24 12:52] LABS: PROCALCITONIN 0.88 ng/ml
[2024-09-24] MEDS: SPIRONOLACTONE 50 MG TAB PO SCH (13:20)
[2024-09-24] MEDS: ATORVASTATIN 20 MG TAB PO SCH (13:20)
[2024-09-24] MEDS ORDERED: ROCURONIUM BROMIDE 50MG/5ML VIAL As Ordered ONE (14:18)
[2024-09-24] MEDS ORDERED: propofoL 200 MG/20 ML VIAL As Ordered ONE (14:18)
[2024-09-24] MEDS ORDERED: SUGAMMADEX SODIUM 500 MG/5 ML VIAL (BRIDION) As Ordered ONE (14:18)
[2024-09-24] MEDS ORDERED: LIDOCAINE 2% 100MG/5ML SDV (FOR ANES.) As Ordered ONE (14:18)
[2024-09-24] MEDS ORDERED: ONDANSETRON 4MG 2ML VIAL As Ordered ONE (14:20)
[2024-09-24] MEDS: ceFAZolin 1GM VIAL As Ordered ONE (17:00)
[2024-09-24] MEDS ORDERED: dexmedeTOMIDine (4MCG/ML)200MCG/50ML BTL (PRECEDEX) As Ordered ONE (17:18)
[2024-09-24] MEDS ORDERED: MIDAZOLAM INJ 2MG/2ML VIAL As Ordered ONE (17:18)
[2024-09-24] MEDS ORDERED: fentaNYL 100 MCG/2 ML INJECTION As Ordered ONE (17:18)
[2024-09-24] MEDS ORDERED: METOCLOPRAMIDE INJ 10MG/2ML VIAL As Ordered ONE (17:18)
[2024-09-24] MEDS ORDERED: SUCCINYLCHOLINE 100MG/5ML SYRINGE As Ordered ONE (17:18)
[2024-09-24] MEDS ORDERED: ACETAMINOPHEN 1000MG/100ML IV BAG As Ordered ONE (17:20)
[2024-09-24] MEDS: LIDOCAINE W/EPINEPHRINE 1% 20ML VIAL As Ordered ONE (17:20)
[2024-09-24] MEDS ORDERED: HYDROMORPHONE HCL 0.5 MG/ 0.5 ML SYRINGE IV PRN (18:35)
[2024-09-24] MEDS ORDERED: fentaNYL 100 MCG/2 ML INJECTION IV PRN (18:35)
[2024-09-24] MEDS ORDERED: ONDANSETRON 4MG 2ML VIAL IV PRN (18:35)
[2024-09-24] MEDS: oxyCODONE 5MG TAB PO PRN (19:42)
[2024-09-24] MEDS: AMPICILLIN SOD/SULBACTAM SOD 3 GM in SODIUM CHLORIDE 0.9% 100ML ADD 100 ML IV SCH (21:48)
[2024-09-24] MEDS: SERTRALINE HCL 50 MG TAB PO SCH (21:49)
[2024-09-24] MEDS: NORTRIPTYLINE 25 MG CAP PO SCH (21:49)
[2024-09-24] MEDS: KETOROLAC 30 MG/ML 1ML VIAL IV PRN (22:00)
[2024-09-25] VITALS (7 sets, daily range): BP systolic 134–160; BP diastolic 63–86; TEMP 96.2–97.5; O2SAT 93–98
[2024-09-25] MEDS: AMPICILLIN SOD/SULBACTAM SOD 3 GM in SODIUM CHLORIDE 0.9% 100ML ADD 100 ML IV SCH (03:38)
[2024-09-25 06:52] LABS: HEMATOCRIT 38.9 % (36.0-47.0); MEAN CORPUSCULAR HEMOGLOBIN 32.4 pg (27.0-33.0); MEAN CORPUSCULAR HGB CONC 34.4 g/dl (32.0-36.5); PLATELET COUNT, AUTOMATED 308 10^3/uL (150-450); RED BLOOD COUNT 4.14 10^6/uL (4.00-5.40); WHITE BLOOD COUNT 19.6 10^3/uL (4.0-10.0)
[2024-09-25 07:45] LABS: HEMOGLOBIN 13.4 g/dl (12.0-15.5)
[2024-09-25] MEDS: ENOXAPARIN 40MG/0.4ML SYRINGE (J1650 PER 10MG) SC SCH (08:45)
[2024-09-25] MEDS: NICOTINE 14 MG/24 HR TRANSDERMAL TD SCH (09:00)
[2024-09-25 09:13] LABS: BLOOD UREA NITROGEN 18 MG/DL (9-23); CALCIUM LEVEL 8.7 MG/DL (8.5-10.1); CARBON DIOXIDE LEVEL 27 MMOL/L (20-31); CHLORIDE LEVEL 99 MMOL/L (98-107); CREATININE FOR GFR 0.64 MG/DL (0.55-1.30); GLOMERULAR FILTRATION RATE > 60.0 (>51); GLUCOSE, FASTING 164 MG/DL (60-100); POTASSIUM SERUM 4.3 MMOL/L (3.5-5.1); SODIUM LEVEL 137 MMOL/L (136-145)
[2024-09-25] MEDS: CHLORHEXIDINE GLUCONATE 0.12 % 15ML UDC (PERIDEX ORAL RINSE) SSP SCH (10:26)
[2024-09-25] MEDS: MORPHINE 4 MG/ML 1ML VIAL IV PRN (10:34)
[2024-09-25 18:24] LABS: PROCALCITONIN 0.43 ng/ml
[2024-09-26 04:00] VITALS: BP 163/90; TEMP 97.2; O2SAT 94
[2024-09-26 07:11] LABS: BASO # 0.1 10^3/uL (0.0-0.2); BASO % 0.3 % (0.0-1.0); EOS % 0.1 % (0.0-3.0); HEMATOCRIT 40.6 % (36.0-47.0); HEMOGLOBIN 13.8 g/dl (12.0-15.5); LYMPH # 1.5 10^3/uL (1.5-5.0); LYMPH % 7.9 % (24.0-44.0); MEAN CORPUSCULAR VOLUME 94.2 fl (80.0-96.0); MONO # 0.8 10^3/uL (0.0-0.8); MONO % 4.1 % (2.0-8.0); NEUTROPHILS # 16.4 10^3/uL (1.5-8.5); NEUTROPHILS % 84.8 % (36.0-66.0); PLATELET COUNT, AUTOMATED 325 10^3/uL (150-450); RED BLOOD COUNT 4.31 10^6/uL (4.00-5.40); WHITE BLOOD COUNT 19.3 10^3/uL (4.0-10.0)
[2024-09-26 07:34] LABS: BLOOD UREA NITROGEN 23 MG/DL (9-23); CALCIUM LEVEL 9.4 MG/DL (8.5-10.1); CARBON DIOXIDE LEVEL 28 MMOL/L (20-31); CHLORIDE LEVEL 102 MMOL/L (98-107); GLOMERULAR FILTRATION RATE > 60.0 (>51); GLUCOSE, FASTING 151 MG/DL (60-100); POTASSIUM SERUM 4.6 MMOL/L (3.5-5.1); SODIUM LEVEL 138 MMOL/L (136-145)
[2024-09-26] MEDS ORDERED: CLIN150C17 PO ×2 (08:52→09:40)
[2024-09-26] MEDS ORDERED: PERI12LIQ SSP (08:52)
[2024-09-26] MEDS ORDERED: BENZ1LOZ9 PO (08:52)
[2024-09-26] MEDS: CEPACOL LOZENGE PO PRN (08:53)
[2024-09-26] MEDS ORDERED: CVS1CAP2 PO (10:54)
[2024-09-26] MEDS ORDERED: FLUC150T9 PO (10:54)
== END 2024-09-26 11:30 | disposition home or self-care (01) | DRG 97 ==
LOC: M ED 05:43 → M ED INP 11:23 → M MS4PR 19:55
PROVIDERS: ADMIT Internal Medicine; ATTEND Internal Medicine
PROC: 0W960ZZ Drainage of Neck, Open Approach (ICD-10-PCS; 2024-09-24)
PROC: 0CDXXZ0 Extraction of Lower Tooth, Single, External Approach (ICD-10-PCS; 2024-09-24)
PROC: 0C9P0ZZ Drainage of Tonsils, Open Approach (ICD-10-PCS; principal; 2024-09-24 15:30)
DX: J36 Peritonsillar abscess (principal); K12.2 Cellulitis and abscess of mouth; R73.03 Prediabetes; K02.9 Dental caries, unspecified; F39 Unspecified mood [affective] disorder; E78.5 Hyperlipidemia, unspecified; F17.210 Nicotine dependence, cigarettes, uncomplicated; G89.29 Other chronic pain; Z79.2 Long term (current) use of antibiotics; Z79.84 Long term (current) use of oral hypoglycemic drugs; Z79.52 Long term (current) use of systemic steroids; Z79.899 Other long term (current) drug therapy; Z88.2 Allergy status to sulfonamides

== ENCOUNTER 2024-09-24 07:45 | Outpatient (RCR) | payer BC ==
[2024-09-24] MEDS ORDERED: FLUC150T9 PO (11:39)
[2024-09-24] MEDS ORDERED: TRET0.0540 TOP (11:39)
[2024-09-24] MEDS ORDERED: METH-1164 PO (11:39)
[2024-09-24] MEDS ORDERED: NAPR-885 PO (11:39)
[2024-09-24] MEDS ORDERED: AMOX875T2 PO (11:39)
[2024-09-24] MEDS ORDERED: DICY1CAP8 PO (11:39)
[2024-09-24] MEDS ORDERED: PAME25CA PO (12:39)
[2024-09-26] MEDS ORDERED: BENZ1LOZ9 PO (08:52)
[2024-09-26] MEDS ORDERED: CLIN150C17 PO ×2 (08:52→09:40)
[2024-09-26] MEDS ORDERED: PERI12LIQ SSP (08:52)
[2024-09-26] MEDS ORDERED: FLUC150T9 PO (10:54)
[2024-09-26] MEDS ORDERED: CVS1CAP2 PO (10:54)
[2024-09-28] MEDS ORDERED: CLIN150C17 PO (10:18)
[2024-09-28] MEDS ORDERED: PERI12LIQ SSP (10:18)
[2024-09-28] MEDS ORDERED: BENZ1LOZ9 MT (10:18)
[2024-10-03] MEDS ORDERED: ACET-683 PO (14:48)
[2024-10-03] MEDS ORDERED: METH85CR6 TOP (14:48)
[2024-10-03] MEDS ORDERED: NAPR-849 PO (14:48)
[2024-10-03] MEDS ORDERED: OXYC-517 PO (14:48)
[2024-10-03] MEDS ORDERED: AMOX875T2 PO (14:48)
== END 2024-10-10 ==
LOC: M PT 07:45
PROVIDERS: ATTEND Physician Assistant
DX: M26.622 Arthralgia of left temporomandibular joint (principal)

== ENCOUNTER → 2024-10-13 | Outpatient (CLI) | payer BC ==
[~2024-10-13] MED LIST changes: +ACET-683 PO; +BENZ1LOZ9 MT; +BENZ1LOZ9 PO; +CLIN150C17 PO; +CVS1CAP2 PO; +METH-1164 PO; +METH85CR6 TOP; +METR-265; +NAPR-849 PO; +OXYC-517 PO; +PAME25CA PO; +PERI12LIQ SSP; +TRET0.0540 TOP
[2024-10-13 17:39] LABS: HEMATOCRIT 40.4 % (36.0-47.0); HEMOGLOBIN 13.9 g/dl (12.0-15.5); MEAN CORPUSCULAR HEMOGLOBIN 32.3 pg (27.0-33.0); MEAN CORPUSCULAR HGB CONC 34.4 g/dl (32.0-36.5); MEAN CORPUSCULAR VOLUME 93.7 fl (80.0-96.0); PLATELET COUNT, AUTOMATED 421 10^3/uL (150-450); RED BLOOD COUNT 4.31 10^6/uL (4.00-5.40)
[2024-10-13 17:52] LABS: ERYTHROCYTE SEDIMENTATION RATE 26 mm/hr (0-30)
[2024-10-13 18:04] LABS: C REACTIVE PROTEIN QUANTITATIV < 0.50 MG/DL (<1.0)
[2024-10-13 18:09] LABS: ALBUMIN 3.4 G/DL (3.2-5.2); ALKALINE PHOSPHATASE 93 U/L (35-104); ALT/SGPT 61 U/L (7.0-40); AST/SGOT 16 U/L (<34); BILIRUBIN,TOTAL 0.3 MG/DL (0.3-1.2); BLOOD UREA NITROGEN 20 MG/DL (9-23); CALCIUM LEVEL 9.6 MG/DL (8.5-10.1); CARBON DIOXIDE LEVEL 25 MMOL/L (20-31); CHLORIDE LEVEL 108 MMOL/L (98-107); CREATININE FOR GFR 1.03 MG/DL (0.55-1.30); GLOMERULAR FILTRATION RATE > 60.0 (>51); GLUCOSE, FASTING 210 MG/DL (60-100); POTASSIUM SERUM 4.1 MMOL/L (3.5-5.1); SODIUM LEVEL 143 MMOL/L (136-145); TOTAL PROTEIN 6.6 G/DL (5.7-8.2)
[2024-10-13 19:18] LABS: ATYPICAL LYMPH 4 % (0-5); LYMPHOCYTES 10 % (16-44); MONOCYTES 5 % (0-5); NEUTROPHILS 79 % (28-66)
[2024-10-13 19:19] LABS: PLATELET ESTIMATE NORMAL (NORMAL)
== END ==
LOC: M PLALAB 15:25
PROVIDERS: ATTEND Physician Assistant Medical
DX: Z09 Encounter for follow-up examination after completed treatment for conditions other than malignant neoplasm (principal); K04.7 Periapical abscess without sinus; R73.01 Impaired fasting glucose

== ENCOUNTER 2024-10-15 05:13 | Emergency (ER) | payer BC ==
[~2024-10-15] VITALS: Ht 157.5 cm; Wt 80.0 kg
[~2024-10-15 05:13] MED LIST changes: -METR-265
[2024-10-15 05:16] VITALS: BP 184/88; TEMP 97.3; O2SAT 98
[2024-10-15] MEDS ORDERED: METR-265 (05:24)
[2024-10-15 06:30] LABS: HEMATOCRIT 40.5 % (36.0-47.0); HEMOGLOBIN 13.7 g/dl (12.0-15.5); MEAN CORPUSCULAR HEMOGLOBIN 31.5 pg (27.0-33.0); MEAN CORPUSCULAR HGB CONC 33.8 g/dl (32.0-36.5); MEAN CORPUSCULAR VOLUME 93.1 fl (80.0-96.0); PLATELET COUNT, AUTOMATED 363 10^3/uL (150-450); RED BLOOD COUNT 4.35 10^6/uL (4.00-5.40); WHITE BLOOD COUNT 11.4 10^3/uL (4.0-10.0)
[2024-10-15 06:52] LABS: ALBUMIN 3.2 G/DL (3.2-5.2); ALKALINE PHOSPHATASE 96 U/L (35-104); ALT/SGPT 60 U/L (7.0-40); AST/SGOT 33 U/L (<34); BILIRUBIN,TOTAL 0.4 MG/DL (0.3-1.2); BLOOD UREA NITROGEN 18 MG/DL (9-23); CALCIUM LEVEL 8.6 MG/DL (8.5-10.1); CARBON DIOXIDE LEVEL 25 MMOL/L (20-31); CHLORIDE LEVEL 105 MMOL/L (98-107); CREATININE FOR GFR 0.66 MG/DL (0.55-1.30); GLOMERULAR FILTRATION RATE > 60.0 (>51); GLUCOSE, FASTING 142 MG/DL (60-100); POTASSIUM SERUM 4.1 MMOL/L (3.5-5.1); SODIUM LEVEL 140 MMOL/L (136-145)
== END 2024-10-15 06:50 | disposition left against medical advice (07) ==
LOC: M ED 05:13
DX: Z53.21 Procedure and treatment not carried out due to patient leaving prior to being seen by health care provider (principal)

== ENCOUNTER → 2024-10-30 | Outpatient (CLI) | payer BC ==
[~2024-10-30] MED LIST changes: +METR-265
[2024-10-30 15:41] LABS: BASO % 0.4 % (0.0-1.0); EOS # 0.1 10^3/uL (0.0-0.5); EOS % 1.2 % (0.0-3.0); HEMATOCRIT 45.3 % (36.0-47.0); HEMOGLOBIN 15.2 g/dl (12.0-15.5); LYMPH # 2.8 10^3/uL (1.5-5.0); LYMPH % 26.6 % (24.0-44.0); MEAN CORPUSCULAR HEMOGLOBIN 31.6 pg (27.0-33.0); MEAN CORPUSCULAR HGB CONC 33.6 g/dl (32.0-36.5); MEAN CORPUSCULAR VOLUME 94.2 fl (80.0-96.0); MONO # 0.7 10^3/uL (0.0-0.8); MONO % 6.9 % (2.0-8.0); NEUTROPHILS # 6.8 10^3/uL (1.5-8.5); NEUTROPHILS % 64.2 % (36.0-66.0); PLATELET COUNT, AUTOMATED 317 10^3/uL (150-450); RED BLOOD COUNT 4.81 10^6/uL (4.00-5.40); WHITE BLOOD COUNT 10.6 10^3/uL (4.0-10.0)
[2024-10-30 15:48] LABS: ERYTHROCYTE SEDIMENTATION RATE 36 mm/hr (0-30)
== END ==
LOC: M PLALAB 12:57
PROVIDERS: ATTEND Internal Medicine Infectious Disease
DX: K04.7 Periapical abscess without sinus (principal)

== ENCOUNTER → 2025-07-28 | Outpatient (REF) | payer OTHER ==
[2025-07-28 18:02] LABS: ESTIMATED AVERAGE GLUCOSE 120.0 MG/DL (60-110)
[2025-07-28 18:24] LABS: ALT/SGPT 55.0 U/L (7.0-40); AST/SGOT 26.0 U/L (<34); CALCIUM LEVEL 9.1 MG/DL (8.5-10.1); CARBON DIOXIDE LEVEL 26.0 MMOL/L (20-31); CHLORIDE LEVEL 106.0 MMOL/L (98-107); CREATININE FOR GFR 0.86 MG/DL (0.55-1.30); GLOMERULAR FILTRATION RATE 81.7 (>51); POTASSIUM SERUM 4.0 MMOL/L (3.5-5.1); SODIUM LEVEL 140.0 MMOL/L (136-145)
== END ==
LOC: M SFHCCLAY 15:10
PROVIDERS: ATTEND Physician Assistant Medical
DX: E11.9 Type 2 diabetes mellitus without complications (principal)